=== PATIENT | male | born 1950 | race Caucasian/White ===

== ENCOUNTER 2017-03-14 05:46 | Emergency (ER) | payer MEDICARE ==
[~2017-03-14] VITALS: Ht 175.3 cm; Wt 105.0 kg
[2017-03-14] MEDS ORDERED: IV NORMAL SALINE 1,000ML 1,000 ML IV SCH (05:51)
--- NOTE | 2017-03-14 05:56 | PHYS DOC ---
Past History Past Medical History: Kidney Stones Past Surgical History: Appendectomy Additional Past Surgical Histo: knee surgery, Smoking: Non-smoker Alcohol Use: Occasionally Drug Use: None Adult General Chief Complaint Chief Complaint: left flank pain [facility] HPI This is a pleasant 66-year-old male with a remote history of kidney stones back in 2007 present with left flank pain that began at sleep tonight about an hour and half prior to arrival. He describes as a sharp throbbing with radiation from the left flank to lower abdomen. There is no fever, no chills, no nausea no vomiting, no rash. Patient has had some difficulty with urination but no dysuria urgency or frequency. Nothing really makes the pain worse or better with movement or position. Patient denies any trauma, travel outside the country , or other symptoms. He denies any chest pain, shortness of breath. He has not taken any medications affect the pain level. The pain was a 9 of 10 when he first woke up. Now it is 7 of 10. Review of Systems Review of Systems Constitutional: Denies fever or chills [] Eyes: Denies change in visual acuity, redness, or eye pain [] HENT: Denies nasal congestion or sore throat [] Respiratory: Denies cough or shortness of breath [] Cardiovascular: No additional information not addressed in HPI [] GI: He does complains of left flank pain but no nausea vomiting or diarrhea. : Denies dysuria or hematuria [] Musculoskeletal: Denies back pain or joint pain [] Integument: Denies rash or skin lesions [] Neurologic: Denies headache, focal weakness or sensory changes [] Endocrine: Denies polyuria or polydipsia [] EKG EKG [] Radiology/Procedures Radiology/Procedures [] Course & Med Decision Making Course & Med Decision Making Pertinent Labs and Imaging studies reviewed. (See chart for details) [] Dragon Disclaimer Dragon Disclaimer This chart was dictated in whole or in part using Voice Recognition software in a busy, high-work load, and often noisy Emergency Department environment. It may contain unintended and wholly unrecognized errors or omissions. Departure Departure: Referrals: PCP,EL (PCP) ABBY HALL MD Mar 14, 2017 05:56
[2017-03-14 05:59] VITALS: BP 147/80
[2017-03-14] MEDS ORDERED: KETOROLAC 30 MG/ML VIAL. IV ONE (06:00)
[2017-03-14] MEDS ORDERED: ONDANSETRON PF 4 MG/2 ML VIAL. IV ONE (06:00)
[2017-03-14] MEDS ORDERED: 0.9 % SODIUM CHLORIDE 10 ML DISP.SYRIN. IV PRN (06:00)
[2017-03-14] MEDS ORDERED: HYDROmorphone PF 1 MG/ML DISP.SYRIN IV/SQ PRN (06:00)
[2017-03-14 06:26] LABS: BASO # 0.1 x10^3/uL (0.0-0.2); BASO % 1 % (0-3); EOS # 0.1 x10^3/uL (0.0-0.7); EOS % 2 % (0-3); HEMATOCRIT 45.2 % (39.0-53.0); HEMOGLOBIN 15.5 g/dL (13.0-17.5); LYMPH # 2.3 x10^3/uL (1.0-4.8); LYMPH % 35 % (24-48); MEAN CORPUSCULAR HEMOGLOBIN 30 pg (25-35); MEAN CORPUSCULAR HGB CONC 34 g/dL (31-37); MEAN CORPUSCULAR VOLUME 86 fL (79-100); MONO # 0.6 x10^3/uL (0.0-1.1); MONO % 9 % (0-9); NEUT # 3.5 x10^3uL (1.8-7.7); NEUT % 53 % (31-73); PLATELET COUNT 205 x10^3/uL (140-400); RED BLOOD COUNT 5.24 x10^6/uL (4.30-5.70); RED CELL DISTRIBUTION WIDTH 13.8 % (11.5-14.5); WHITE BLOOD COUNT 6.7 x10^3/uL (4.0-11.0)
[2017-03-14 06:36] LABS: ALBUMIN 4.2 g/dL (3.4-5.0); ALBUMIN/GLOBULIN RATIO 1.3 (1.0-1.7); CALCIUM 8.9 mg/dL (8.5-10.1); CREATININE 1.1 mg/dL (0.7-1.3); GFR 67.2; POTASSIUM 4.4 mmol/L (3.5-5.1); TOTAL BILIRUBIN 0.4 mg/dL (0.2-1.0); TOTAL PROTEIN 7.5 g/dL (6.4-8.2)
--- NOTE | 2017-03-14 06:37 | PHYS DOC ---
General Chief Complaint: FLANK PAIN Stated Complaint: LOWER BACK PAIN Time Seen by MD: 06:06 Source: patient, RN/MD Exam Limitations: no limitations Problems: History of Present Illness Initial Comments Report received on Alejandro Mercado at 6 AM shift change. See Dr. Hall's documentation for data not contained herein. Patient was 90 minutes severe left flank pain prior to arrival this morning. Pain rated 9 out of 10 at onset 7 out of 10 on ED arrival it did improve significantly with Toradol IV. The patient is visiting from [place] he has history of kidney stones last occurrence was 2007 where he passed a 4 mm stone. He says it took 3 weeks to pass the stone and it was with great deal of difficulty and discomfort. When I speak with the patient is resting comfortably is refusing pain medications at that time. He denies nausea vomiting he's had some urinary hesitancy but no gross hematuria or dysuria. No fever chills sweats or myalgias denies other complaints. Patient is noted to be bradycardic in the department, he says he bikes frequently and considers himself to be very fit. He states his resting heart rate is always in the 40s. He denies any chest pain difficulty breathing fatigue lethargy or somnolence. Timing/Duration: 1-3 hours Severity: severe Modifying Factors: improves with medication Associated Symptoms: other Allergies: Coded Allergies: No Known Drug Allergies (Unverified , 03/14/17) Past Medical History Medical History: other (kidney stone) Surgical History: appendectomy (knee) Social History Smoker: non-smoker Alcohol: none Drugs: none Review of Systems Constitutional: denies chills, denies diaphoresis, denies fever Respiratory: denies cough, denies shortness of breath Cardiovascular: denies chest pain, denies palpitations Gastrointestinal: see HPI Genitourinary: see HPI Musculoskeletal: see HPI Psychiatric/Neurological: denies headache, denies numbness, denies paresthesia Physical Exam General Appearance: WD/WN, no apparent distress Ear, Nose, Throat: hearing grossly normal, normal ENT inspection Neck: non-tender, supple Respiratory: normal breath sounds, no respiratory distress Cardiovascular: normal peripheral pulses, bradycardia Gastrointestinal: normal bowel sounds, non tender, soft Back: no vertebral tenderness, CVA tenderness (L) Extremities: non-tender, normal inspection Neurologic/Psychiatric: arm rest builder II-XII nml as tested, no motor/sensory deficits, alert, normal mood/affect, oriented x 3 Skin: normal color, warm/dry Orders, Labs, Meds 0636: Report received from Dr Hall at 0600 shift change. Pt has been resting comfortably, denies discomfort, awaiting CT. HR has dipped to the 40's , will place pt on telemetry. He denies fatigue/lethargy or other c/o. EKG: Sinus bradycardia at 53 bpm, there is flattening of the T waves in aVF as well as an incomplete right bundle branch block no STEMI. Interpreted by Dr. Hernandez. PATIENT: ALEJANDRO MERCADO ACCOUNT: [id number] : 1950 LOCATION: ER AGE: 66 SEX: M EXAM STATUS: REG ER ORD. PHYSICIAN: ABBY HALL MD REASON: left flank pain PROCEDURE: CT ABDOMEN PELVIS WO CONTRAST CT ABDOMEN PELVIS WO CONTRAST dated 03/14/2017 6:54 AM Indication:Left side flank pain x1- 2 days, hx of kidney stones, stone protocol Comparison: No comparison is available. Technique: Helical noncontrast images were performed. One or more of the following individualized dose reduction techniques were utilized for this examination: 1. Automated exposure control 2. Adjustment of the mA and/or kV according to patient size 3. Use of iterative reconstruction technique Findings: There is mild dependent atelectasis in the lower lobes. The lung bases otherwise are clear. Liver and spleen are homogeneous in density and normal in configuration. There are small gallstones in the gallbladder. Kidneys show no apparent mass. Evaluation of the solid organs is somewhat limited by lack of IV contrast. There is a small calculus in the upper right kidney. There is a larger stone in the proximal left ureter at the UPJ. This measures about 8 mm. There is at least mild obstruction. The adrenal glands are not enlarged. The pancreas appears normal. No retroperitoneal or mesenteric adenopathy is seen. There is no apparent abdominal soft tissue mass or inflammatory process. Images through the pelvis show no abnormality of the distal ureters or bladder. The bladder was not well distended. No pelvic or inguinal adenopathy is seen. There is no apparent pelvic mass or inflammatory process. IMPRESSION: There is an 8 mm proximal left ureteral stone causing at least mild obstruction. Electronically signed by: Nilo Jaime Jr., MD (03/14/2017 7:04 AM) [place] [id number] DICTATED AND SIGNED BY: NILO JAIME Jr, MD DATE: 03/14/17 0700 CC: ABBY HALL MD; PCP,NO; PAVEL HERNANDEZ DO ~ 0736: Labs and urine are back and unremarkable. I discussed findings with the patient and discuss treatment options. The patient passed a 4 mm stone in the past and said it was a very rough 3 weeks. He does not feel he can pass this at home and is requesting inpatient management. Urology service has been paged. [phone]: I discussed the patient with Dr. Engel urology. He requested that I give the patient Rocephin 1 g IV, keep him nothing by mouth and admit to hospitalist at [facility]. Hospitalist is being paged. [phone]: Dr Patrick Parker hospitalist called and the patient was discussed. He accepts the patient for med telemetry admission. Patient will be kept nothing by mouth Dr. Engel consulted planning for procedure later this afternoon. Departure Time of Disposition: 08:18 Disposition: 02 XFER SHT-TRM HOSP Diagnosis: 8 mm L proximal stone with obs, sinus bradycardia Condition: STABLE Additional Instructions: EMS transfer to [facility] for Med-tele admission Dr. Patrick Parker is accepting. PAVEL HERNANDEZ DO Mar 14, 2017 06:37
--- NOTE | 2017-03-14 07:08 | RAD ---
CT ABDOMEN PELVIS WO CONTRAST dated 03/14/2017 6:54 AM Indication:Left side flank pain x1- 2 days, hx of kidney stones, stone protocol Comparison: No comparison is available. Technique: Helical noncontrast images were performed. One or more of the following individualized dose reduction techniques were utilized for this examination: 1. Automated exposure control 2. Adjustment of the mA and/or kV according to patient size 3. Use of iterative reconstruction technique Findings: There is mild dependent atelectasis in the lower lobes. The lung bases otherwise are clear. Liver and spleen are homogeneous in density and normal in configuration. There are small gallstones in the gallbladder. Kidneys show no apparent mass. Evaluation of the solid organs is somewhat limited by lack of IV contrast. There is a small calculus in the upper right kidney. There is a larger stone in the proximal left ureter at the UPJ. This measures about 8 mm. There is at least mild obstruction. The adrenal glands are not enlarged. The pancreas appears normal. No retroperitoneal or mesenteric adenopathy is seen. There is no apparent abdominal soft tissue mass or inflammatory process. Images through the pelvis show no abnormality of the distal ureters or bladder. The bladder was not well distended. No pelvic or inguinal adenopathy is seen. There is no apparent pelvic mass or inflammatory process. IMPRESSION: There is an 8 mm proximal left ureteral stone causing at least mild obstruction. Electronically signed by: Kyree Jaime Jr., MD (03/14/2017 7:04 AM) [id number]
[2017-03-14 07:21] LABS: BILIRUBIN,URINE NEG (NEG); CLARITY,URINE HAZY; COLOR,URINE YELLOW; GLUCOSE,URINE NEG (NEG); NITRITE,URINE NEG (NEG); UROBILINOGEN,URINE 0.2 mg/dL (0.2 mg/dL)
[2017-03-14 07:22] LABS: AMORPHOUS SEDIMENT,UR PRESENT /HPF; BACTERIA,URINE FEW /HPF (0-FEW); SQUAMOUS EPITHELIAL CELL,UR FEW /LPF
[2017-03-14 07:23] LABS: HYALINE CASTS, URINE OCC /HPF
[2017-03-14] MEDS ORDERED: cefTRIAXone SODIUM 1 GM VIAL IV ONE (08:41)
[2017-03-14] MEDS ORDERED: IV NORMAL SALINE 50ML 50 ML ONE (08:41)
--- NOTE | 2017-03-14 08:48 | EKG ---
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
== END 2017-03-14 08:57 | disposition short-term general hospital (02) ==
LOC: ER 05:46
DX: N20.1 Calculus of ureter (principal); R00.1 Bradycardia, unspecified; Z87.442 Personal history of urinary calculi; Z90.49 Acquired absence of other specified parts of digestive tract
CPT/HCPCS: 36415; 74176; 80053; 81001; 83690; 85027; 93005; 96361; 96365; 96375; 99285; J0696; J1885; J2405; J7030